=== PATIENT | female | born 1935 | race Caucasian/White ===

== ENCOUNTER 2016-10-12 22:41 | Emergency (ER) | payer OTHER ==
[2016-10-12 23:01] VITALS: RESP 28; TEMP 99.1
[2016-10-12] MEDS ORDERED: APAP/HYDROCODONE 325/5 TAB PO ONE (23:25)
[2016-10-12] MEDS ORDERED: APAP/HYDROCODONE 325/5 TAB ONE (23:40)
[2016-10-13 01:03] VITALS: BP 140/73; PULSE 59; O2SAT 97
== END 2016-10-12 23:48 | disposition home or self-care (01) | DRG 558 ==
LOC: ED 22:41
DX: M77.11 Lateral epicondylitis, right elbow (principal)
CPT/HCPCS: 99282

== ENCOUNTER 2017-12-01 10:01 | Outpatient (CLI) | payer OTHER ==
[2016-10-13 01:03] VITALS: O2SAT 97
== END 2017-12-01 10:02 | disposition home or self-care (01) | DRG 556 ==
LOC: CONVCARE 10:01
PROVIDERS: ATTEND Orthopaedic Surgery
DX: M79.661 Pain in right lower leg (principal)
CPT/HCPCS: 73590

== ENCOUNTER 2018-01-21 11:44 | Outpatient (CLI) | payer OTHER ==
[2016-10-13 01:03] VITALS: O2SAT 97
== END 2018-01-21 11:45 | disposition home or self-care (01) | DRG 556 ==
LOC: CONVCARE 11:44
PROVIDERS: ATTEND Orthopaedic Surgery
DX: M79.652 Pain in left thigh (principal)
CPT/HCPCS: 72120; 73502; 73560; 73590

== ENCOUNTER 2018-03-17 10:07 | Emergency (ER) | payer OTHER ==
[2018-03-17 10:20] VITALS: RESP 20; TEMP 97.1; O2SAT 100
[2018-03-17 10:51] VITALS: BP 144/75; PULSE 82
== END 2018-03-17 10:45 | disposition home or self-care (01) | DRG 149 ==
LOC: ED 10:07
DX: R42 Dizziness and giddiness (principal); F41.1 Generalized anxiety disorder
CPT/HCPCS: 99282

== ENCOUNTER 2019-05-10 07:13 | Day surgery (SDC) | payer OTHER ==
[2019-05-10] MEDS ORDERED: ACETAZOLAMIDE 250 MG PO ONE (07:25)
[2019-05-10] MEDS: CYCLOPENTOLATE 1% SOL ONE ×2 (07:40→07:53)
[2019-05-10] MEDS: TETRACAINE HCL 0.5 % OPHTH 1 DROP SOL ONE ×3 (07:40→09:02)
[2019-05-10] MEDS: KETOROLAC 0.5% OPTH 60 DROP SOL ONE ×2 (07:40→07:53)
[2019-05-10] MEDS: PHENYLEPHRINE HCL 10% OPHTHAL SOL ONE ×2 (07:40→07:53)
[2019-05-10] MEDS ORDERED: MIDAZOLAM 2 MG/2 ML SOL ONE (08:40)
[2019-05-10] MEDS ORDERED: FENTANYL 100MCG/2ML SOL ONE (08:40)
[2019-05-10] MEDS ORDERED: TRIMOXI ONE (08:57)
[2019-05-10] MEDS ORDERED: LIDOCAINE HCL 1% MPF 30 SOL ONE (08:58)
[2019-05-10] MEDS ORDERED: BSS 500 ML 500 ML IR ONE (08:58)
[2019-05-10] MEDS: POVIDONE IODINE 5% SOL ONE ×2 (09:03→09:05)
[2019-05-10 10:07] VITALS: BP 121/71; PULSE 70; RESP 20; TEMP 97.9; O2SAT 98
== END 2019-05-10 09:57 | disposition home or self-care (01) | DRG 125 ==
LOC: SURG 07:13
PROVIDERS: ATTEND Ophthalmology
DX: H25.89 Other age-related cataract (principal)
CPT/HCPCS: J2250; J3010; A9270-GY; J2001